=== PATIENT | female | born 1965 | race Caucasian/White ===

== ENCOUNTER → 2016-12-15 | Outpatient (CLI) | payer OTHER, BC ==
[~2016-12-15] MED LIST: GLCS500; OMEG10007 PO
--- NOTE | 2016-12-15 15:32 | DIAGNOSTIC IMAGING REPORT ---
L-SPINE MIN 4 VIEWS ROUTINE CLINICAL HISTORY: Low back pain status post trauma COMPARISON STUDY: 10/21/2013 FINDINGS: There are 5 lumbar type vertebral bodies present. No fractures or subluxations are visualized. There is a minimal spinal curvature convex to the right. IMPRESSION: No fractures or subluxations identified Electronically signed by: Darryl Bryant M.D. 12/15/2016 3:30 PM Dictated Date/Time: 12/15/2016 3:29 PM
== END | disposition home or self-care (01) ==
LOC: C.RAD1850 15:08
PROVIDERS: ATTEND Nurse Practitioner Adult Health
DX: M54.5 Low back pain (principal)